=== PATIENT | female | born 1995 | race Caucasian/White ===

== ENCOUNTER 2022-10-23 10:57 | Emergency (ER) | payer SELFPAY ==
[2022-10-23 11:03] VITALS: BP 115/83; PULSE 99; RESP 18; TEMP 36.6; O2SAT 99
--- NOTE | 2022-10-23 11:11 | ED.WOUNDLAC ---
HPI - Wound/Laceration General Chief Complaint: Wound/Laceration Stated Complaint: L leg Lacerations Time Seen by Provider: 10/23/22 11:11 Source: patient Mode of arrival: ambulatory Limitations: no limitations History of Present Illness HPI narrative: 27-year-old female with no significant past medical history presents to the ER with -- 3 cm laceration on the right anterior leg. She got hit by a rock while mowing her yard. No other injuries noted. Onset (ago): minute(s) ( 20 minutes ago) Location: other ( right leg) Extremity Location: Right: lower leg Body four view annotation: 1. 3 cm laceration on the right anterior leg Place: home Patient tetanus UTD: No Context: accidental Associated symptoms: none Related Data Home Medications Medication Instructions Recorded Confirmed No Home Medications 10/23/22 10/23/22 Allergies Allergy/AdvReac Type Severity Reaction Status Date / Time No Known Allergies Allergy Verified 10/23/22 11:03 Review of Systems Review of Systems: All systems reviewed & are unremarkable except as noted in HPI and below Exam Const: General: healthy appearing and no acute distress Orientation/consciousness: patient oriented x3 Limitations: no limitations HENMT: Head: normal to inspection Ears: external ears normal Face/Nose/Sinus: Normal external nose present Face and sinus: normal facial exam Mouth: Yes Normal oral and palatal mucosa present Throat: posterior oropharynx normal Eyes: Conjunctivae: conjunctivae normal Pupils: Equal, round and reactive pupils present EOM: EOMs intact bilaterally Direct Ophthalmoscopy: no photophobia Neck: Neck: normal visual inspection, no lymphadenopathy and no meningeal signs Chest: Chest palpation & inspection: normal inspection of the chest Resp: Effort & Inspection: normal respiratory effort Auscultation: clear to auscultation bilaterally Cardio: Rate: regular rate Rhythm: regular rhythm GI: GI Palp: Yes Soft to palpation Auscultation: normal bowel sounds Back/Spine/Pelvis: Back: no CVA tenderness Skin: General skin exam: normal color Other: 3 cm laceration on the right anterior leg. The laceration is a full-thickness laceration. Profuse bleeding. Neuro: General: patient oriented x3, moves all extremities, no meningeal signs, no focal motor deficits and CN's II-XI intact bilaterally Cranial nerves: Yes Nystagmus not present Speech: normal speech Gait exam (Neuro): Normal gait present Extrem: General: normal to inspection Other: 3 cm laceration right anterior leg. Psych: Mental Status: mental status grossly normal Affect: normal affect Attitude: cooperative Course Course Emergency Course: 3 Cm laceration right anterior leg. The wound was sutured with 4-0 nylon. Vital Signs Vital signs: Vital Signs Temperature 36.6 C 10/23/22 11:03 Pulse Rate 99 10/23/22 11:03 Respiratory Rate 18 10/23/22 11:03 Blood Pressure 115/83 10/23/22 11:03 Pulse Oximetry 99 10/23/22 11:03 Oxygen Delivery Room Air 10/23/22 11:03 Temperature 36.6 C 10/23/22 11:03 Pulse Rate 99 10/23/22 11:03 Respiratory Rate 18 10/23/22 11:03 Blood Pressure 115/83 10/23/22 11:03 Pulse Oximetry 99 10/23/22 11:03 Oxygen Delivery Room Air 10/23/22 11:03 Procedures Laceration Laceration 1: Date: 10/23/22 Time: 11:34 Site: lower extremity Side (If applicable): right Size (cm): 3 Description: irregular Depth: simple, single layer Local Anesthetic: lidocaine 1% Amount of anesthesia used (mL): 4 Pre-repair: wound explored ====== Skin Level ====== Skin layer closed with: nylon Size (cm): 4-0 Number of sutures: 8 Technique: running ====== Subcutaneous Layer ====== ====== Muscle Layer ====== ====== Tendon Layer ====== MDM - Wound/Laceration MDM Narrative Medical decision jerzy
[2022-10-23] MEDS: TETANUS,DIPHTHERIA,AC PERTUSSIS ADULT 0.5 ML (ADACEL) IM (11:20)
[2022-10-23] MEDS: LIDOCAINE HCL 1% LOCAL INJ 10 ML VIAL 5 ML INFILTRATE (11:21)
== END 2022-10-23 11:46 | disposition home or self-care (01) ==
PROVIDERS: Emergency Provider Internal Medicine Critical Care Medicine
DX: S81.811A Laceration without foreign body, right lower leg, initial encounter (principal); Z23 Encounter for immunization; W45.8XXA Other foreign body or object entering through skin, initial encounter; Y92.007 Garden or yard of unspecified non-institutional (private) residence as the place of occurrence of the external cause
CPT/HCPCS: 12002; 90471; 90715; 99282